=== PATIENT | female | born 1985 | race Caucasian/White ===

== ENCOUNTER 2016-11-16 09:11 | Day surgery (SDC) | payer BC ==
[~2016-11-16 09:11] MED LIST: LOTRISONE CREAM15 GM TP; NONE PER PATIENT
== END 2016-11-16 13:35 ==
LOC: SHSB 09:11 → ORW 11:03 → PACU 11:43 → SHSB 12:10
PROC: 0U5C7ZZ Destruction of Cervix, Via Natural or Artificial Opening (ICD-10-PCS; principal; 2016-11-16)
DX: D06.0 Carcinoma in situ of endocervix (principal); D06.1 Carcinoma in situ of exocervix; F17.210 Nicotine dependence, cigarettes, uncomplicated